=== PATIENT | female | born 1980 | race Caucasian/White ===

== ENCOUNTER 2019-09-01 05:30 | Inpatient (IN) | payer BC ==
[2019-09-03] MEDS ORDERED: Misoprostol 200 MCG TAB PR PRN (06:52)
[2019-09-03] MEDS ORDERED: Ondansetron PF 4 MG/2 ML Vial IVP PRN ×2 (06:52→10:07)
[2019-09-03] MEDS ORDERED: Promethazine HCl 25 MG/ML VIAL IM PRN ×2 (06:52→10:07)
[2019-09-03] MEDS ORDERED: Lidocaine 1% (PF) 30 ML VIAL SC PRN (06:52)
[2019-09-03] MEDS ORDERED: Butorphanol Tartrate 1 MG/ML VIAL SLOW IVP PRN (06:52)
[2019-09-03] MEDS ORDERED: Acetaminophen 500 MG TAB PO PRN (06:52)
[2019-09-03] MEDS ORDERED: NS / Oxytocin 40 units/1000ml 1,000 ML IV PRN (06:52)
[2019-09-03] MEDS ORDERED: Carboprost 250 MCG/ML AMP IM PRN (06:52)
[2019-09-03] MEDS ORDERED: Diphenoxylate HCl/Atropine Tablet PO PRN ×2 (06:52)
[2019-09-03] MEDS ORDERED: HYDROcodone/Acetaminophen 5/325 mg Tablet PO PRN (06:52)
[2019-09-03] MEDS ORDERED: Ibuprofen 800 MG TAB PO PRN (06:52)
[2019-09-03] MEDS ORDERED: hydrALAZINE 20 MG/ML VIAL SLOW IVP PRN ×2 (06:52→11:32)
[2019-09-03] MEDS ORDERED: NS w/ Oxytocin 10 units 500 ML IV SCH (06:52)
[2019-09-03 06:58] VITALS: BMI 37.9
[2019-09-03] MEDS: Lactated Ringer's 1,000 ML IV SCH ×2 (07:15→08:28)
[2019-09-03] MEDS ORDERED: Fentanyl 4 mcg/Bup 0.1% Cadd 100 ML ONE (07:57)
[2019-09-03] MEDS ORDERED: NS / Oxytocin 40 units/1000ml 1,000 ML ONE (08:16)
[2019-09-03] MEDS ORDERED: Lidocaine 1% (PF) 30 ML VIAL ONE (08:16)
[2019-09-03 08:17] LABS: Hemoglobin 12.1 g/dL (12.0-16.0); Mean Corpuscular Hemoglobin 22.1 pg (27.0-31.0); Mean Corpuscular Volume 71.1 fL (78.0-98.0); Mean Platelet Volume 12.4 fL (7.4-10.4); Platelet Count 135 thou/uL (130-400); RBC Distribution Width 16.1 % (11.5-14.5); White Blood Cell (WBC) Count 12.6 thou/uL (4.8-10.8)
[2019-09-03] MEDS ORDERED: Misoprostol 200 MCG TAB ONE (08:18)
[2019-09-03 08:42] LABS: Syphilis Antibody Nonreactive (Nonreactive); Syphilis Antibody Index 0.04 S/CO (<1.00 Non-Reactive)
[2019-09-03 08:43] LABS: HBSAg Index 0.14 S/CO (0-0.99); Hep B Surf Ag Non-Reactive S/CO (NonReactive)
[2019-09-03] MEDS ORDERED: Bupivacaine/Epinephrine 0.25% 30 ML VIAL ONE (10:03)
[2019-09-03] MEDS ORDERED: Acetaminophen 325 MG TAB PO PRN (10:07)
[2019-09-03] MEDS ORDERED: diphenhydrAMINE 50 MG/ML VIAL IVP PRN (10:07)
[2019-09-03] MEDS ORDERED: EPHEDRINE 25 MG/5 ML SYRINGE SLOW IVP PRN (10:07)
[2019-09-03] MEDS ORDERED: Lactated Ringer's 500 ML IV PRN (10:07)
[2019-09-03] MEDS ORDERED: Naloxone HCl 0.4 mg/ml Vial IVP PRN ×2 (10:07)
[2019-09-03] MEDS ORDERED: Fentanyl 4 mcg/Bupivacaine 0.1% Cassette 100 ML EPIDURAL SCH (10:15)
[2019-09-03] MEDS ORDERED: Communication Order-Pharmacy FS SCH (10:15)
[2019-09-03] MEDS ORDERED: Benzocaine-Menthol 82.5 ML CAN TOP PRN (11:32)
[2019-09-03] MEDS ORDERED: traMADol HCl 50 MG TAB PO PRN (11:32)
[2019-09-03] MEDS ORDERED: Milk Of Magnesia 30 ML UDCUP PO PRN (11:32)
[2019-09-03] MEDS ORDERED: Bisacodyl 10 MG SUPP PR PRN (11:32)
[2019-09-03] MEDS ORDERED: Preparation H Ointment 28 GM TUBE PR PRN (11:32)
--- NOTE | 2019-09-03 11:34 | PDOC.OPDEL ---
OB Operative/Delivery Note Delivery Dr/Surgeon: Abram Pre-Delivery Diagnosis: active labor (TOLAC) Procedure/Post Delivery Dx: spontaneous vaginal delivery Weeks gestation: 40 Anesthesia: epidural - Findings A Sex: female - 1 min: 8 - 5 min: 9 - Additional Findings/Plan Placenta delivered: spontaneous Repaired Obstetrical Laceration: 2nd degree
[2019-09-03] MEDS ORDERED: NS / Oxytocin 40 units/1000ml 1,000 ML IV SCH (11:45)
[2019-09-03] MEDS: Ibuprofen 800 MG TAB PO SCH (17:15)
[2019-09-03] MEDS: Ferrous Sulfate 325 MG TAB PO SCH (18:30)
[2019-09-03] MEDS: Docusate Calcium (SURFAK) 240 MG CAP PO SCH (21:23)
[2019-09-04] MEDS: Ibuprofen 800 MG TAB PO SCH ×2 (00:15→06:22)
[2019-09-04] MEDS: Ferrous Sulfate 325 MG TAB PO SCH (07:17)
[2019-09-04] MEDS: Docusate Calcium (SURFAK) 240 MG CAP PO SCH (08:39)
[2019-09-04] MEDS ORDERED: Prenatal Vitamin 1 TAB PO SCH (09:00)
[2019-09-04] MEDS ORDERED: Adacel (T-DAP) 0.5 ML SYRINGE IM ONE (11:32)
[2019-09-04 11:37] VITALS: BP 120/81; TEMP 97.9
== END 2019-09-04 12:56 | disposition home or self-care (01) | DRG 807 ==
LOC: L&D 09-03 06:28 → 3SW 09-03 18:23
PROVIDERS: ADMIT Obstetrics & Gynecology; ATTEND Obstetrics & Gynecology
PROC: 10E0XZZ Delivery of Products of Conception, External Approach (ICD-10-PCS; principal; 2019-09-03)
PROC: 0KQM0ZZ Repair Perineum Muscle, Open Approach (ICD-10-PCS; 2019-09-03)
DX: O70.1 Second degree perineal laceration during delivery (principal); Z37.0 Single live birth; Z3A.40 40 weeks gestation of pregnancy
CPT/HCPCS: 36415; 51702; 85027; 86780; 86850; 86900; 86901; 87340; J2001